=== PATIENT | female | born 1960 | race Caucasian/White ===

== ENCOUNTER 2019-05-18 07:41 | Outpatient (CLI) | payer OTHER, SELFPAY ==
[2019-05-18 09:26] LABS: Alanine Aminotransferase 17 U/L (4-35); Alkaline Phosphatase 45 U/L (38-126); Aspartate Amino Transferase 23 U/L (14-36); Bilirubin,Total 0.4 mg/dL (0.2-1.3); Blood Urea Nitrogen 6 mg/dL (7-17); Calcium 9.1 mg/dL (8.4-10.2); Carbon Dioxide 27 mmol/L (22-30); Chloride 104 mmol/L (98-107); Cholesterol 106 mg/dL (0-200); Estimated Glomerular Filt Rate > 60; Glucose 76 mg/dL (65-105); HDL Direct 42 mg/dL; Potassium 4.1 mmol/L (3.4-5.0); Sodium 138 mmol/L (137-145); Triglycerides 112 mg/dL (<150)
[2019-05-18 09:36] LABS: LDL Cholesterol Direct 55 mg/dL
== END 2019-05-18 07:42 | disposition home or self-care (01) ==
LOC: ANHLAB 07:47
PROVIDERS: PCP Emergency Medicine; Visit Provider Internal Medicine Cardiovascular Disease
DX: E78.5 Hyperlipidemia, unspecified (principal)
CPT/HCPCS: 36415; 80053; 80061

== ENCOUNTER 2021-04-05 17:55 | Emergency (ER) | payer OTHER, SELFPAY ==
--- NOTE | ~2021-04-05 | XR_ITS ---
XR chest 2V DATE: 04/05/2021 18:34 INDICATION: Chest pain TECHNIQUE: PA and lateral views COMPARISON: 03/15/2018 portable AP chest FINDINGS: Normal heart size. No hilar or mediastinal enlargement. No pulmonary infiltrate or consolid ation, pleural effusion or pulmonary vascular congestion or pneumothorax. Status post cholecystectomy IMPRESSION: No active cardiopulmonary disease Reviewed, dictated and finalized at location A. [employer]
[2021-04-05 18:19] VITALS: BP 174/67; PULSE 87; RESP 16; TEMP 36.3; O2SAT 100
--- NOTE | 2021-04-05 18:22 | ECG_ITS ---
Measurements Intervals [place] Rate: 86 P: 75 NE: 143 QRS: 28 QRSD: 81 T: 29 QT: 358 QTc: 430 Interpretive Statements SINUS RHYTHM LOW QRS VOLTAGE IN PRECORDIAL LEADS BORDERLINE R WAVE PROGRESSION, ANTERIOR LEADS BORDERLINE ST-T WAVE ABNORMALITY- INFERIOR LEADS BASELINE ARTIFACT- III, AVF BORDERLINE ECG Electronically Signed On 04-05-2021 21:08:02 GEAR HOBBER OPERATOR by Samson Gaston D.O.
[2021-04-05 18:36] LABS: Basophils Absolute Auto 0.1 K/mm3 (0.0-0.1); Basophils Percent Auto 0.6 % (0.2-1.2); Eosinophils Absolute Auto 0.3 K/mm3 (0-0.3); Eosinophils Percent Auto 1.9 % (0-4.4); Hematocrit 38.3 % (37.0-47.0); Hemoglobin 12.9 g/dL (12.0-15.0); Immature Granulocyte Absolute 0.06 K/mm3 (0.00-0.031); Immature Granulocyte Percent A 0.4 % (0-0.5); Lymphocytes Absolute Auto 4.88 K/mm3 (0.9-3.2); Lymphocytes Percent Auto 31.2 % (18.3-44.2); Mean Corpuscular HGB Conc 33.7 g/dl (32-36); Mean Corpuscular Hemoglobin 29.9 pg (26-34); Mean Corpuscular Volume 88.7 fl (80-100); Mean Platelet Volume 8.6 fl (7.4-10.4); Monocytes Absolute Auto 0.9 K/mm3 (0.1-0.6); Monocytes Percent Auto 5.4 % (2.6-8.5); Neutrophils Absolute Auto 9.5 K/mm3 (1.3-6.7); Neutrophils Percent Auto 60.5 % (45.5-73.1); Platelet Count Result 333 k/mm3 (150-375); Red Blood Count 4.32 M/mm3 (4.2-5.4); Red Cell Distribution Width 14.5 % (11.5-14.5); White Blood Count 15.6 K/mm3 (4.5-10.0)
[2021-04-05 18:45] LABS: INR 0.8; Prothrombin Time 11.3 Seconds (11.1-14.7)
[2021-04-05 18:46] LABS: Partial Thromboplastin Time 25.2 SECONDS (22.3-36.8)
[2021-04-05 19:28] LABS: Alanine Aminotransferase 34 U/L (4-35); Albumin Level 4.8 g/dL (3.5-5.1); Alkaline Phosphatase 57 U/L (38-126); Anion Gap 11 mmol/L (8-16); Aspartate Amino Transferase 33 U/L (14-36); Bilirubin,Total 0.4 mg/dL (0.2-1.3); Blood Urea Nitrogen 12 mg/dL (7-17); Carbon Dioxide 22 mmol/L (22-30); Chloride 101 mmol/L (98-107); Estimated CRCL calculation 67 ml/min; Estimated Glomerular Filt Rate > 60; Glucose 135 mg/dL (65-110); Lipase 178 U/L (23-300); Sodium 134 mmol/L (137-145)
[2021-04-05 19:37] LABS: Troponin I < 0.012 ng/mL (0.000-0.034)
[2021-04-05 20:42] VITALS: BP 140/64; PULSE 76; TEMP 37.1; O2SAT 99
[2021-04-05 23:10] LABS: Troponin I < 0.012 ng/mL (0.000-0.034)
[2021-04-05 23:25] VITALS: BP 150/66; PULSE 67; PULSE 70; RESP 14; O2SAT 100
--- NOTE | 2021-04-05 23:34 | ED.GENADULT ---
HPI - General Adult General Chief complaint: Chest Pain Stated complaint: heaviness to arms Time Seen by Provider: 04/05/21 23:22 History of Present Illness HPI narrative: Patient 60-year-old female presents the emergency department with chief complaint of chest discomfort patient reports she has history of anxiety and also history of cardiac disease patient states around 5 PM she had some discomfort in the left side of her chest she took a sublingual nitro and the pain resolved. Patient denies diaphoresis denies shortness of breath denies radiation. Patient states that she does have history of cardiac disease and reports has been a few years since her last cardiac cath. Patient does have history of stent placement. The patient reports that she is due to see her contract lead in follow-up in the near future. Patient states that she has been asymptomatic since she took the nitroglycerin the patient states that she had no shortness of breath no diaphoresis and no radiation Related Data Home Medications Medication Instructions Recorded Confirmed cholecalciferol (vitamin D3) 25 25 mcg PO DAILY 08/07/19 10/28/20 mcg (1,000 unit) tablet calcium carbonate 260 mg calcium 780 mg PO BID tablet 10/28/20 10/28/20 (648 mg) tablet Allergies Allergy/AdvReac Type Severity Reaction Status Date / Time No Known Allergies Allergy Mild Verified 04/05/21 23:29 Review of Systems Review of Systems: A 10 system review of systems was completed on the patient and is negative except for what is stated in the HPI. Nursing and ancillary documentation was reviewed. PMFSH Past Medical History Medical History Diabetes Headache, migraine History of pulmonary embolism HPV in female Myocardial infarction Pulmonary fibrosis Pulmonary nodules Surgical History Surgical History Hx of angioplasty Hx of right coronary artery stent placement Family History Family History Sibling Family history of diabetes mellitus in first degree relative Family history of heart disease in male family member before age 55 Patient's brother is Family history of malignant neoplasm Father Family history of heart disease in male family member before age 55 Patient's father is Acute myocardial infarction Mother Family history of heart disease in male family member before age 55 Patient's mother is Diabetes mellitus Acute myocardial infarction Other Cerebrovascular accident Family history of cardiovascular disease Hypertension Social History Social History Smoking packs per day: 0.5 Smoking cigarettes per day: 10.0 Smoking status: Current every day smoker Second hand tobacco smoke exposure: Yes Alcohol intake: never Substance use: never Exam Narrative: GENERAL: Well-appearing, well-nourished, and in no acute distress. HEAD: Normocephalic, atraumatic. EYES: PERRLA and EOMI. ENT: Nares clear, no rhinorrhea or epistaxis. Mucous membranes moist. NECK: Supple. CHEST: Clear to auscultation. No respiratory distress. HEART: Regular rate and rhythm. No murmur heard. Normal peripheral pulses. ABDOMEN: Soft, nontender, nondistended, normal active bowel sounds. EXTREMITIES: Normal range of motion. No edema. SKIN: Warm, dry, no rash. NEURO: No focal deficits. Alert and oriented x3. PSYCH: Normal mood and affect. Course Course Emergency Course: EKG is sinus rhythm rate of [address] elevation or ST depression The case was discussed with Dr. Arce the patient's primary contract lead who recommended the patient call the office at 8 AM to schedule an appointment Vital Signs Vital signs: Vital Signs Temperature 36.3 C L 04/05/21 18:19 Pulse Rate
[2021-04-05] MEDS: ASPIRIN 81 MG CHEWABLE TABLET 324 MG PO (23:47)
[2021-04-06 00:31] VITALS: BP 141/60; PULSE 69; RESP 17; O2SAT 98
[2021-04-06 00:58] LABS: Troponin I < 0.012 ng/mL (0.000-0.034)
[2021-04-06 01:48] VITALS: BP 137/64; PULSE 72; RESP 16; O2SAT 99
== END 2021-04-06 01:48 | disposition home or self-care (01) ==
PROVIDERS: Emergency Medicine; Emergency Provider Emergency Medicine; PCP Internal Medicine
DX: R07.89 Other chest pain (principal); E11.9 Type 2 diabetes mellitus without complications; I51.9 Heart disease, unspecified; I25.2 Old myocardial infarction; J84.10 Pulmonary fibrosis, unspecified; Z95.5 Presence of coronary angioplasty implant and graft; Z86.711 Personal history of pulmonary embolism; F17.210 Nicotine dependence, cigarettes, uncomplicated; F41.9 Anxiety disorder, unspecified; Z79.82 Long term (current) use of aspirin; Z79.84 Long term (current) use of oral hypoglycemic drugs; R94.31 Abnormal electrocardiogram [ECG] [EKG]
CPT/HCPCS: 36415; 71046; 80053; 83690; 84484; 85025; 85610; 85730; 93005; 99284; A9270

== ENCOUNTER 2021-11-29 07:41 | Outpatient (CLI) | payer OTHER, SELFPAY ==
[2021-11-29 08:22] LABS: Alanine Aminotransferase 23 U/L (6-35); Albumin Level 4.2 g/dL (3.5-5.1); Alkaline Phosphatase 53 U/L (38-126); Anion Gap 9 mmol/L (8-16); Aspartate Amino Transferase 26 U/L (14-36); Bilirubin,Total 0.5 mg/dL (0.2-1.3); Blood Urea Nitrogen 7 mg/dL (7-17); Calcium 8.9 mg/dL (8.4-10.2); Carbon Dioxide 23 mmol/L (22-30); Chloride 106 mmol/L (98-107); Cholesterol 150 mg/dL (0-200); Estimated Glomerular Filt Rate > 60; Glucose 147 mg/dL (65-110); HDL Direct 51 mg/dL; Potassium 4.3 mmol/L (3.4-5.0); Sodium 138 mmol/L (137-145); Triglycerides 158 mg/dL (<150)
[2021-11-29 08:24] LABS: Hemoglobin A1C 6.9 % (<5.7)
[2021-11-29 08:34] LABS: LDL Cholesterol Direct 70 mg/dL
[2021-11-29 09:05] LABS: Vitamin D 25 Hydroxy 44.3 ng/mL
== END 2021-11-29 07:42 | disposition home or self-care (01) ==
LOC: ANHLAB 07:42
PROVIDERS: PCP Internal Medicine; Visit Provider Internal Medicine
DX: E11.65 Type 2 diabetes mellitus with hyperglycemia (principal); I10 Essential (primary) hypertension; E78.5 Hyperlipidemia, unspecified
CPT/HCPCS: 36415; 80053; 80061; 82306; 83036

== ENCOUNTER 2022-08-28 08:26 | Emergency (ER) | payer OTHER, SELFPAY ==
[2022-08-28 08:32] VITALS: BP 134/77; PULSE 77; RESP 18; TEMP 36.2; O2SAT 98
--- NOTE | 2022-08-28 09:17 | ED.DENTAL ---
HPI - Dental/Oral General Chief complaint: Dental/Oral Stated complaint: toothache Time Seen by Provider: 08/28/22 08:30 History of Present Illness HPI Narrative: Patient is a 61-year-old female who presents ER with toothache. Ongoing over the last 2 days. Left upper jaw. She has developed facial swelling. No difficulty breathing or swallowing. Has pain with eating. Has not yet contacted her dentist but plans to do so tomorrow. No recent dental fracture. Related Data Home Medications Medication Instructions Recorded Confirmed cholecalciferol (vitamin D3) 25 25 mcg PO DAILY 08/07/19 05/03/22 mcg (1,000 unit) tablet calcium carbonate 260 mg calcium 780 mg PO BID 10/28/20 05/03/22 (648 mg) tablet Allergies Allergy/AdvReac Type Severity Reaction Status Date / Time No Known Allergies Allergy Mild Verified 05/03/22 09:30 Review of Systems Constitutional: Constitutional: Denies chills and Denies fever(s) ENT: Denies nasal congestion and Denies sore throat Comments: Dental pain PMFSH Past Medical History Medical History Diabetes Headache, migraine History of pulmonary embolism HPV in female Myocardial infarction Pulmonary fibrosis Pulmonary nodules Surgical History Surgical History Hx of angioplasty Hx of right coronary artery stent placement Family History Family History Sibling Family history of diabetes mellitus in first degree relative Family history of heart disease in male family member before age 55 Patient's brother is Family history of malignant neoplasm Father Family history of heart disease in male family member before age 55 Patient's father is Acute myocardial infarction Mother Family history of heart disease in male family member before age 55 Patient's mother is Diabetes mellitus Acute myocardial infarction Other Cerebrovascular accident Family history of cardiovascular disease Hypertension Social History Social History Smoking packs per day: 0.5 Smoking cigarettes per day: 10.0 Smoking status: Current every day smoker Second hand tobacco smoke exposure: Yes Alcohol intake: never Substance use: never Substance use type: does not use Lack of Transportation: No Lack of Food: Never True Current Housing: I Have Housing Concerned About Future Housing: No Difficulty Paying Gas/Electric Bills: No Difficulty Paying for Meds: No Currently Unemployed: No Education: High School Diploma/GED Difficulty w/ Childcare or Family Care: No Exam Narrative: GENERAL: Well-appearing, well-nourished, and in no acute distress. HEAD: Normocephalic, atraumatic. ENT: Mucous membranes moist. Right-sided upper facial swelling. Tender palpation at tooth #12 without fluctuant abscess. NECK: Supple. CHEST: Clear to auscultation. No respiratory distress. HEART: Regular rate and rhythm. Normal peripheral pulses. NEURO: Alert and oriented x3. PSYCH: Normal mood and affect. Course Course Emergency Course: Patient resting comfortably. Discussed treatment plan with oral antibiotics for home also prescribed some pain medication. Vital Signs Vital signs: Vital Signs Temperature 97.1 F L 08/28/22 08:32 Pulse Rate 77 08/28/22 08:32 Respiratory Rate 18 08/28/22 08:32 Blood Pressure 134/77 08/28/22 08:32 Pulse Oximetry 98 08/28/22 08:32 Oxygen Delivery Room Air 08/28/22 08:32 Temperature 97.1 F L 08/28/22 08:32 Pulse Rate 77 08/28/22 08:32 Respiratory Rate 18 08/28/22 08:32 Blood Pressure 134/77 08/28/22 08:32 Pulse Oximetry 98 08/28/22 08:32 Oxygen Delivery Room Air 08/28/22 08:32 Discharge Plan Discharge Clinical Im
== END 2022-08-28 09:29 | disposition home or self-care (01) ==
PROVIDERS: Emergency Provider Emergency Medicine; PCP Family Medicine
DX: K08.89 Other specified disorders of teeth and supporting structures (principal); E11.9 Type 2 diabetes mellitus without complications; I25.2 Old myocardial infarction; J84.10 Pulmonary fibrosis, unspecified; Z86.711 Personal history of pulmonary embolism; Z95.5 Presence of coronary angioplasty implant and graft; F17.210 Nicotine dependence, cigarettes, uncomplicated; Z79.82 Long term (current) use of aspirin; Z79.84 Long term (current) use of oral hypoglycemic drugs
CPT/HCPCS: 99283

== ENCOUNTER 2023-02-13 21:50 | Emergency (ER) | payer OTHER, SELFPAY ==
[2023-02-13 21:57] VITALS: BP 172/77; PULSE 103; RESP 16; TEMP 36.1; O2SAT 100
[2023-02-13 22:18] LABS: Appearance Urine Cloudy (Clear); Bacteria Urine None Seen /hpf; Bilirubin Urine Negative (Negative); Blood Urine 3+ (Negative); Color Urine Yellow (Yellow); Glucose Urine UA Negative (Negative); Ketones Urine Negative (Negative); Leukocyte Esterase Ur 3+ LEU/UL (Negative); Nitrate Urine Negative (Negative); Non Pathogenic Casts 0-2; Protein Urine 1+ mg/dL (Negative); RBC Urine >100 /hpf (0-2); Specific Grav Ur 1.007 (1.001-1.035); Squamous Epithelial Cell Urine None seen /hpf (Few); Urobilinogen Urine 0.2 mg/dL (<2.0); WBC Urine >100 /hpf; pH Urine 6.5 (5.0-9.0)
[2023-02-13 22:24] LABS: Add Urine Microscopic? YES
[2023-02-14 00:22] VITALS: BP 152/65; PULSE 81; RESP 16; O2SAT 100
--- NOTE | 2023-02-14 00:49 | ED.FEMALEGU ---
HPI - Female Genitourinary General Chief complaint: Urogenital-Female Stated complaint: hematuria, pain with urination Time Seen by Provider: 02/14/23 00:28 History of Present Illness HPI Narrative: Patient is a 62-year-old female presenting with dysuria and urinary frequency. States it has been going on for about a week. She had some leftover Augmentin from a toothache and has taken 3 doses. States that her symptoms initially improved but have returned so she came in for evaluation. She denies flank pain. No nausea or vomiting. No fevers. No further complaints. Related Data Home Medications Medication Instructions Recorded Confirmed cholecalciferol (vitamin D3) 25 25 mcg PO DAILY 08/07/19 10/25/22 mcg (1,000 unit) tablet calcium carbonate 260 mg calcium 780 mg PO BID 10/28/20 10/25/22 (648 mg) tablet Allergies Allergy/AdvReac Type Severity Reaction Status Date / Time No Known Allergies Allergy Mild Verified 10/25/22 07:57 Review of Systems Review of Systems: All systems reviewed & are unremarkable except as noted in HPI and below PMFSH Past Medical History Medical History Diabetes Headache, migraine History of pulmonary embolism HPV in female Myocardial infarction Pulmonary fibrosis Pulmonary nodules Surgical History Surgical History Hx of angioplasty Hx of right coronary artery stent placement Family History Family History Sibling Family history of diabetes mellitus in first degree relative Family history of heart disease in male family member before age 55 Patient's brother is Family history of malignant neoplasm Father Family history of heart disease in male family member before age 55 Patient's father is Acute myocardial infarction Mother Family history of heart disease in male family member before age 55 Patient's mother is Diabetes mellitus Acute myocardial infarction Other Cerebrovascular accident Family history of cardiovascular disease Hypertension Social History Social History Smoking packs per day: 0.5 Smoking cigarettes per day: 10.0 Smoking status: Current every day smoker Second hand tobacco smoke exposure: Yes Alcohol intake: never Substance use: never Substance use type: does not use Lack of Transportation: No Lack of Food: Never True Current Housing: I Have Housing Concerned About Future Housing: No Difficulty Paying Gas/Electric Bills: No Difficulty Paying for Meds: No Currently Unemployed: No Education: High School Diploma/GED Difficulty w/ Childcare or Family Care: No Exam Narrative: GENERAL: Well-appearing, Nontoxic, no acute distress HEAD: Normocephalic, atraumatic. EYES: PERRLA and EOMI. ENT: grossly unremarkable NECK: Supple. CHEST: No respiratory distress. HEART: Regular rate and rhythm ABDOMEN: Soft, mild suprapubic tenderness without guarding or rebound; no CVA tenderness EXTREMITIES: Normal range of motion. SKIN: Warm, dry, no rash. NEURO: Alert and oriented x3. PSYCH: Normal mood and affect. Course Vital Signs Vital signs: Vital Signs Temperature 97 F L 02/13/23 21:57 Pulse Rate 103 H 02/13/23 21:57 Respiratory Rate 16 02/13/23 21:57 Blood Pressure 172/77 H 02/13/23 21:57 Pulse Oximetry 100 02/13/23 21:57 Oxygen Delivery Room Air 02/13/23 21:57 Temperature 97 F L 02/13/23 21:57 Pulse Rate 81 02/14/23 00:22 Respiratory Rate 16 02/14/23 00:22 Blood Pressure 152/65 H 02/14/23 00:22 Pulse Oximetry 100 02/14/23 00:22 Oxygen Delivery Room Air 02/13/23 21:57 MDM - Female Genitourinary MDM Narrative Medical decision making narrative: 62-year-old female patria
[2023-02-14] MEDS: CEPHALEXIN 500 MG CAPSULE PO (00:53)
== END 2023-02-14 01:30 | disposition home or self-care (01) ==
LOC: ANHED 02-14 01:24
PROVIDERS: Student in an Organized Health Care Education/Training Program; Emergency Provider Emergency Medicine; PCP Family Medicine
DX: N39.0 Urinary tract infection, site not specified (principal); E11.9 Type 2 diabetes mellitus without complications; I25.2 Old myocardial infarction; F17.210 Nicotine dependence, cigarettes, uncomplicated; Z86.711 Personal history of pulmonary embolism; Z95.5 Presence of coronary angioplasty implant and graft; Z79.82 Long term (current) use of aspirin; Z79.84 Long term (current) use of oral hypoglycemic drugs
CPT/HCPCS: 81001; 87086; 87088; 99283; A9270

== ENCOUNTER 2023-05-08 07:07 | Outpatient (CLI) | payer OTHER, SELFPAY ==
[2023-05-08 07:35] LABS: Hematocrit 38.8 % (37.0-47.0); Hemoglobin 12.3 g/dL (12.0-15.0); Mean Corpuscular HGB Conc 31.7 g/dl (32-36); Mean Corpuscular Hemoglobin 29.2 pg (26-34); Mean Corpuscular Volume 92.2 fl (80-100); Mean Platelet Volume 8.6 fl (7.4-10.4); Platelet Count Result 354 k/mm3 (150-375); Red Blood Count 4.21 M/mm3 (4.2-5.4); Red Cell Distribution Width 14.9 % (11.5-14.5); White Blood Count 9.4 K/mm3 (4.5-10.0)
[2023-05-08 07:56] LABS: Alanine Aminotransferase 23 U/L (6-35); Albumin Level 4.3 g/dL (3.5-5.1); Alkaline Phosphatase 50 U/L (38-126); Anion Gap 5 mmol/L (8-16); Aspartate Amino Transferase 28 U/L (14-36); Bilirubin,Total 0.3 mg/dL (0.2-1.3); Blood Urea Nitrogen 13 mg/dL (7-17); Calcium 9.3 mg/dL (8.4-10.2); Carbon Dioxide 26 mmol/L (22-30); Chloride 102 mmol/L (98-107); Cholesterol 146 mg/dL (0-200); Estimated Glomerular Filt Rate > 60; Glucose 149 mg/dL (65-110); HDL Direct 52 mg/dL; Potassium 4.4 mmol/L (3.4-5.0); Sodium 133 mmol/L (137-145); Triglycerides 131 mg/dL (<150)
[2023-05-08 08:06] LABS: LDL Cholesterol Direct 70 mg/dL
[2023-05-08 08:08] LABS: Vitamin D 25 Hydroxy 41.3 ng/mL
[2023-05-08 11:22] LABS: Hemoglobin A1C 7.1 % (<5.7)
== END 2023-05-08 07:08 | disposition home or self-care (01) ==
PROVIDERS: PCP Family Medicine; Visit Provider Internal Medicine Cardiovascular Disease
DX: E78.5 Hyperlipidemia, unspecified (principal); E55.9 Vitamin D deficiency, unspecified; E11.65 Type 2 diabetes mellitus with hyperglycemia; I25.10 Atherosclerotic heart disease of native coronary artery without angina pectoris; J44.9 Chronic obstructive pulmonary disease, unspecified; Z12.39 Encounter for other screening for malignant neoplasm of breast; Z76.89 Persons encountering health services in other specified circumstances; Z78.0 Asymptomatic menopausal state
CPT/HCPCS: 36415; 80053; 80061; 82306; 83036; 85027

== ENCOUNTER 2023-05-09 08:57 | Outpatient (CLI) | payer OTHER, SELFPAY ==
--- NOTE | 2023-05-09 09:29 | EST_ITS ---
Patient Info Name: Patricia Jang Age: 62 years : 1960 Gender: Female Ht: 61 in Wt: 134 lbs BSA: 1.63 m2 HR: 60 bpm BP: 148 / 77 mmHg Heart Rhythm: Sinus Rhythm Exam Date: 05/09/2023 9:53 AM Exam Location: Echo Lab Patient Status: Outpatient Admit Date: 05/09/2023 Staff Ordering Physician: Samson Gaston DO Attending Provider: Samson Gaston DO Exercise Technologist: Brigid Browne CT Exercise Physician: Samson Gaston DO Exam Type: CA stress test treadmill Study Info Indications R07.89 - Other chest pain A treadmill exercise stress test was performed. Summary 1. 1. Negative Alex exercise stress test for ischemic ST changes by ECG criteria. 2. 2. Poor functional capacity, achieving 4.7 METs of workload. 3. 3. Baseline hypertension. 4. 4. Appropriate HR response to exercise. 5. 5. Appropriate HR recovery at 1 minute post exercise. 6. 6. No imaging with stress testing. 7. 7. Patient informed of the above results. Protocol: Alex Stress ECG Details Stage: REST Duration (min): 7 min : 14 sec Speed (mph): 0.0 Grade (%): 0 HR (bpm): 73 SBP (mmHg): 163 DBP (mmHg): 64 METS: --- Stage: REST Duration (min): 7 min : 30 sec Speed (mph): 0.0 Grade (%): 0 HR (bpm): 76 SBP (mmHg): 163 DBP (mmHg): 64 METS: --- Stage: STAGE 1 Duration (min): 1 min : 0 sec Speed (mph): 1.7 Grade (%): 10 HR (bpm): 98 SBP (mmHg): 163 DBP (mmHg): 64 METS: --- Stage: STAGE 1 Duration (min): 2 min : 0 sec Speed (mph): 1.7 Grade (%): 10 HR (bpm): 132 SBP (mmHg): 163 DBP (mmHg): 64 METS: --- Stage: STAGE 1 Duration (min): 3 min : 0 sec Speed (mph): 2.5 Grade (%): 12 HR (bpm): 140 SBP (mmHg): 165 DBP (mmHg): 76 METS: --- Stage: RECOVERY Duration (min): 1 min : 0 sec Speed (mph): 0.0 Grade (%): 0 HR (bpm): 120 SBP (mmHg): 165 DBP (mmHg): 76 METS: --- Stage: RECOVERY Duration (min): 2 min : 0 sec Speed (mph): 0.0 Grade (%): 0 HR (bpm): 106 SBP (mmHg): 165 DBP (mmHg): 76 METS: --- Stage: RECOVERY Duration (min): 2 min : 47 sec Speed (mph): 0.0 Grade (%): 0 HR (bpm): 97 SBP (mmHg): 178 DBP (mmHg): 64 METS: --- Rest HR: 76 bpm Peak HR: 142 bpm Rest Sys BP: 163 mmHg Peak Sys BP: 178 mmHg Max Pred HR: 158 bpm % Max Pred HR: 90 % Target HR: 134 bpm Max RPP: 25,276 bpm*mmHg Orozco Score: -2 Termination Reason: Reached target heart rate or workload Cardiac Symptoms: Shortness of breath Max ST Seg Deviation: -1.10 mm Total Time: 3 min : 0 sec Rest [place]ado BP: 64 mmHg Peak [place] BP: 64 mmHg Angina Score: None Total METS: 4.7 Resting ECG Sinus rhythm. Stress ECG Borderline ST abnormality in diffuse leads. Arrhythmias None. Report Signatures
== END 2023-05-09 08:58 | disposition home or self-care (01) ==
PROVIDERS: PCP Family Medicine; Visit Provider Internal Medicine Cardiovascular Disease
DX: R07.9 Chest pain, unspecified (principal); I10 Essential (primary) hypertension
CPT/HCPCS: 93017

== ENCOUNTER 2023-10-08 19:30 | Emergency (ER) | payer OTHER, SELFPAY ==
--- NOTE | ~2023-10-08 | XR_ITS ---
XR wrist LT min 3V Ordering provider: Samuel Farfan APRN History: . left wrist pain/injury . Comparison: None. FINDINGS: BONES: Fracture distal metaphysis of the left radius. Extension to the joint space is highly suggesti ve. No significant displacement seen. No angulation. No definite scaphoid fracture. JOINT SPACES: Well maintained. SOFT TISSUES: Normal. IMPRESSION: Fracture distal metaphysis of the left radius. Reviewed, dictated and finalized at location A.
[2023-10-08 19:31] VITALS: BP 159/85; PULSE 87; RESP 18; TEMP 36.4; O2SAT 98
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
[2023-10-08 19:44] VITALS: BP 149/63; PULSE 89; RESP 16; O2SAT 99
[2023-10-08] MEDS: HYDROcodone/acetaminophen (*CRX) 5-325 MG TABLET 1 TAB PO (20:30)
[2023-10-08 20:41] VITALS: BP 154/69; PULSE 83; RESP 16; O2SAT 97
== END 2023-10-08 20:48 | disposition home or self-care (01) ==
PROVIDERS: Emergency Provider Nurse Practitioner Family; PCP Family Medicine
DX: S62.102A Fracture of unspecified carpal bone, left wrist, initial encounter for closed fracture (principal); F17.210 Nicotine dependence, cigarettes, uncomplicated; E11.9 Type 2 diabetes mellitus without complications; I25.2 Old myocardial infarction; Z86.711 Personal history of pulmonary embolism; W03.XXXA Other fall on same level due to collision with another person, initial encounter
CPT/HCPCS: 29125; 73110; 99284; A4565; A9270

== ENCOUNTER 2023-10-10 14:20 | Emergency (ER) | payer OTHER, SELFPAY ==
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
[2023-10-10 14:38] VITALS: BP 142/57; PULSE 86; RESP 18; TEMP 36.5; O2SAT 97
--- NOTE | 2023-10-10 14:55 | PC.NURSE ---
Pt reports prescribed [place] pain medicine makes her sick and she has not been taking it. Reports OTC Tylenol is helping.
[2023-10-10] MEDS: ACETAMINOPHEN 500 MG TABLET 1000 MG PO (15:42)
[2023-10-10] MEDS: methocarbamoL 750 MG TABLET PO (15:42)
--- NOTE | 2023-10-10 16:19 | ED.GENADULT ---
HPI - General Adult General Chief complaint: Back Pain/Injury Stated complaint: back pain after fall Time Seen by Provider: 10/10/23 14:46 History of Present Illness HPI narrative: This is a 63-year-old female presenting with tailbone pain. Patient was seen here 2 days ago after she had a fall and sustained a radius fracture. At that time she had no pain in her tailbone. However last 2 days she has not felt soreness. It is worse with movement. No weakness to the legs. No bowel or urinary issues. She has been taking Tylenol with some relief. She tempted to take the [place] she was provided with this made her ill. Related Data Home Medications Medication Instructions Recorded Confirmed cholecalciferol (vitamin D3) 25 25 mcg PO DAILY 08/07/19 04/17/23 mcg (1,000 unit) tablet calcium carbonate 780 mg PO BID 10/28/20 04/17/23 Allergies Allergy/AdvReac Type Severity Reaction Status Date / Time No Known Allergies Allergy Mild Verified 10/10/23 14:21 [facility] Past Medical History Medical History Diabetes Headache, migraine History of pulmonary embolism HPV in female Myocardial infarction Pulmonary fibrosis Pulmonary nodules Surgical History Surgical History Hx of angioplasty Hx of right coronary artery stent placement Family History Family History Sibling Family history of diabetes mellitus in first degree relative Family history of heart disease in male family member before age 55 Patient's brother is Family history of malignant neoplasm Father Family history of heart disease in male family member before age 55 Patient's father is Acute myocardial infarction Mother Family history of heart disease in male family member before age 55 Patient's mother is Diabetes mellitus Acute myocardial infarction Other Cerebrovascular accident Family history of cardiovascular disease Hypertension Social History Social History Smoking packs per day: 0.5 Smoking cigarettes per day: 10.0 Smoking status: Current every day smoker Second hand tobacco smoke exposure: Yes Alcohol intake: never Substance use: never Substance use type: does not use Do You Feel Safe in your Home?: Yes Lack of Transportation: No Lack of Food: Never True Current Housing: I Have Housing Concerned About Future Housing: No Difficulty Paying Gas/Electric Bills: No Difficulty Paying for Meds: No Currently Unemployed: No Education: High School Diploma/GED Difficulty w/ Childcare or Family Care: No Exam Narrative: APPEARANCE: No apparent distress. Head: atraumatic. EYES: EOMI, NOSE: Atraumatic NECK: Trachea midline RESPIRATORY: No increased rate of breathing CARDIOVASCULAR: RRR, ABDOMINAL: Non-distended MUSCULOSKELETAl: No obvious deformities, no bruising or tenderness over the fluids are tailbone NEURO: Alert. Cranial nerves 2-12 grossly intact. Sensation light touch, motor function cerebellar function intact for 4 extremities. Gait exam was normal. SKIN:: Warm, dry. Normal color PSYCHIATRIC: Normal affect Course Vital Signs Vital signs: Vital Signs Temperature 97.7 F 10/10/23 14:38 Pulse Rate 86 10/10/23 14:38 Respiratory Rate 18 10/10/23 14:38 Blood Pressure 142/57 H 10/10/23 14:38 Pulse Oximetry 97 10/10/23 14:38 Oxygen Delivery Room Air 10/10/23 14:38 Temperature 97.7 F 10/10/23 14:38 Pulse Rate 86 10/10/23 14:38 Respiratory Rate 18 10/10/23 14:38 Blood Pressure 142/57 H 10/10/23 14:38 Pulse Oximetry 97 10/10/23 14:38 Oxygen Delivery Room Air 10/10/23 14:38 Medical Decision Making MDM Narrative Medical decision making narrative: -Course: 63-year
[2023-10-10 16:40] VITALS: BP 145/72; PULSE 80; RESP 18; O2SAT 97
== END 2023-10-10 16:40 | disposition home or self-care (01) ==
PROVIDERS: Emergency Provider Emergency Medicine; PCP Family Medicine
DX: S39.92XA Unspecified injury of lower back, initial encounter (principal); E11.9 Type 2 diabetes mellitus without complications; I25.2 Old myocardial infarction; J84.10 Pulmonary fibrosis, unspecified; F17.210 Nicotine dependence, cigarettes, uncomplicated; Z95.5 Presence of coronary angioplasty implant and graft; Z86.711 Personal history of pulmonary embolism; W19.XXXA Unspecified fall, initial encounter
CPT/HCPCS: 72170; 99283; A9270

== ENCOUNTER 2024-05-13 07:01 | Outpatient (CLI) | payer OTHER, SELFPAY ==
[2024-05-13 07:52] LABS: Hematocrit 34.8 % (37.0-47.0); Hemoglobin 11.4 g/dL (12.0-15.0); Mean Corpuscular HGB Conc 32.8 g/dl (32-36); Mean Corpuscular Hemoglobin 29.1 pg (26-34); Mean Corpuscular Volume 88.8 fl (80-100); Mean Platelet Volume 8.7 fl (7.4-10.4); Platelet Count Result 342 k/mm3 (150-375); Red Blood Count 3.92 M/mm3 (4.2-5.4); Red Cell Distribution Width 14.9 % (11.5-14.5); White Blood Count 11.4 K/mm3 (4.5-10.0)
[2024-05-13 08:15] LABS: Alanine Aminotransferase 21 U/L (6-35); Albumin Level 3.9 g/dL (3.5-5.1); Alkaline Phosphatase 45 U/L (38-126); Anion Gap 8 mmol/L (4-12); Aspartate Amino Transferase 22 U/L (14-36); Bilirubin,Total 0.3 mg/dL (0.2-1.3); Blood Urea Nitrogen 7 mg/dL (7-17); Calcium 9.1 mg/dL (8.4-10.2); Carbon Dioxide 24 mmol/L (22-30); Chloride 102 mmol/L (98-107); Estimated Glomerular Filt Rate > 60; Glucose 125 mg/dL (65-110); Potassium 4.5 mmol/L (3.4-5.0); Sodium 134 mmol/L (137-145)
[2024-05-13 08:55] LABS: Vitamin D 25 Hydroxy 42.3 ng/mL
== END 2024-05-13 07:02 | disposition home or self-care (01) ==
LOC: ANHLAB 07:04
PROVIDERS: PCP Family Medicine; Visit Provider Family Medicine
DX: E55.9 Vitamin D deficiency, unspecified (principal); I10 Essential (primary) hypertension; J44.9 Chronic obstructive pulmonary disease, unspecified; E11.65 Type 2 diabetes mellitus with hyperglycemia; I25.10 Atherosclerotic heart disease of native coronary artery without angina pectoris; E78.5 Hyperlipidemia, unspecified
CPT/HCPCS: 36415; 80053; 82306; 83036; 85027